=== PATIENT | female | born 1955 | race Caucasian/White ===

== ENCOUNTER 2019-10-26 19:39 | Emergency (ER) | payer OTHER ==
[~2019-10-26] VITALS: Ht 170.2 cm; Wt 63.5 kg
[2019-10-26 19:42] VITALS: BP 150/94
--- NOTE | 2019-10-26 19:54 | NUR ---
PT SENT BY URGENT CARE C/O OF L HAND 3RD DIGIT WHITE DISCOLORATION/BRUSING W/C THE PATIENT NOTICED X 1 HOUR AGO. +SENSATION, -PAIN. PT AAOX4, VSS, NO ACUTE DISTRESS NOTED AT THIS TIME. WILL CONTINUE TO MONITOR. CALL LIGHT WITHIN REACH
--- NOTE | 2019-10-26 20:12 | NUR ---
Patient discharged to home in stable condition. Written and verbal after care instructions given. Patient verbalizes understanding of instruction.ambulatory with a steady gait
== END 2019-10-26 20:13 | disposition home or self-care (01) ==
LOC: ER 19:43
DX: I73.00 Raynaud's syndrome without gangrene (principal); E11.9 Type 2 diabetes mellitus without complications; Z98.890 Other specified postprocedural states; Z60.2 Problems related to living alone

== ENCOUNTER 2022-08-12 13:00 | Emergency (ER) | payer BC, OTHER ==
[~2022-08-12] VITALS: Ht 170.2 cm; Wt 59.0 kg
[2022-08-12 13:44] LABS: BASOPHILS % (AUTO) 0.4 % (0.0-2.0); HEMATOCRIT 42 % (33-45); HEMOGLOBIN 13.9 g/dL (11.5-14.8); LYMPHOCYTES # (AUTO) 1.5 K/uL (0.8-4.8); LYMPHOCYTES % (AUTO) 22.8 % (20.0-44.0); MEAN CORPUSCULAR HGB CONC 33 g/dl (31.0-36.0); MEAN CORPUSCULAR VOLUME 93 fL (82-100); MONOCYTES # (AUTO) 0.8 K/uL (0.1-1.30); MONOCYTES % (AUTO) 11.8 % (2.0-12.0); NEUTROPHILS # (AUTO) 4.4 K/uL (1.8-8.9); PLATELET COUNT (AUTO) 202 K/uL (150-450); RED BLOOD CELL COUNT(AUTO) 4.56 MIL/uL (4.0-5.2); WHITE BLOOD COUNT (AUTO) 6.7 K/uL (4.3-11.0)
--- NOTE | 2022-08-12 14:00 | NUR ---
Eligioljulia, neighbor drove pt to hospital, pt fell on bathroom floor pt stated lost concsiousness before the fall then fell and hit back of head , fell two times
--- NOTE | 2022-08-12 14:01 | NUR ---
CT scan of head performed
[2022-08-12 14:16] LABS: CALCIUM, SERUM 9.3 mg/dL (8.5-10.1); CARBON DIOXIDE 28 mmol/L (21-32); CHLORIDE 100 mmol/L (98-107); CREATININE 1.1 mg/dL (0.6-1.3); GLUCOSE 186 mg/dL (74-106); POTASSIUM 4.3 mmol/L (3.5-5.1); SODIUM SERUM 137 mmol/L (136-145); UREA NITROGEN, BLOOD 16 mg/dL (7-18)
[2022-08-12 14:21] LABS: ALANINE AMINOTRANSFERASE 27 U/L (12-78); ALKALINE PHOSPHATASE 69 U/L (46-116); ASPARTATE AMINOTRANSFERASE 26 U/L (15-37); BILIRUBIN,DIRECT 0.2 mg/dL (0.0-0.2); TOTAL PROTEIN, SERUM 7.5 g/dL (6.4-8.2)
[2022-08-12] MEDS ORDERED: BACI/NEOM/POLY B OINT PKT 1 UDPKT PACKET ONE (14:51)
[2022-08-12] MEDS ORDERED: TDAP [DIPH/PERTUSSIS/TET] 0.5 ML VIAL IM ONE ×2 (14:51→15:00)
[2022-08-12] MEDS ORDERED: LIDOCAINE 0.5%-EPI 1:200,000 50 ML VIAL ONE (14:51)
[2022-08-12] MEDS ORDERED: LIDOCAINE 1% INJ 50 ML MDV IJ ONE (15:00)
[2022-08-12] MEDS ORDERED: BACI/NEOM/POLY B OINT PKT 1 UDPKT PACKET TP ONE (15:00)
[2022-08-12 15:05] LABS: BILIRUBIN,TOTAL 0.6 mg/dL (0.2-1.0)
[2022-08-12] MEDS ORDERED: METF-881 PO (15:07)
[2022-08-12] MEDS ORDERED: ESTR1PAT87 TD (15:07)
[2022-08-12] MEDS ORDERED: PROG100C15 PO (15:07)
[2022-08-12] MEDS ORDERED: BUPR-319 PO (15:07)
[2022-08-12] MEDS ORDERED: ESTR10TA4 VG (15:07)
[2022-08-12 16:33] VITALS: BP 114/64
== END 2022-08-12 16:34 | disposition home or self-care (01) ==
LOC: ER 13:10
DX: R55 Syncope and collapse (principal); S01.01XA Laceration without foreign body of scalp, initial encounter; E11.9 Type 2 diabetes mellitus without complications; Z79.84 Long term (current) use of oral hypoglycemic drugs; W18.30XA Fall on same level, unspecified, initial encounter; Y93.89 Activity, other specified; Y92.89 Other specified places as the place of occurrence of the external cause; Y99.8 Other external cause status
CPT/HCPCS: 99285; 70450; 71045; 12002; 90471; 93005; 90715; 85025; 80048; 80076; 36415; 84484; 85730; J3490; A6403 ×2

== ENCOUNTER 2023-05-20 13:51 | Emergency (ER) | payer BC ==
[~2023-05-20] VITALS: Ht 170.2 cm; Wt 61.2 kg
[~2023-05-20 13:51] MED LIST: BUPR-319 PO; ESTR10TA4 VG; ESTR1PAT87 TD; METF-881 PO; PROG100C15 PO
[2023-05-20 14:54] LABS: BASOPHILS # (AUTO) 0.1 K/uL (0.0-0.2); BASOPHILS % (AUTO) 1.1 % (0.0-2.0); EOSINOPHILS # (AUTO) 0.1 K/uL (0.0-0.7); EOSINOPHILS % (AUTO) 2.5 % (0.0-6.0); HEMATOCRIT 43 % (33-45); HEMOGLOBIN 13.9 g/dL (11.5-14.8); LYMPHOCYTES # (AUTO) 1.9 K/uL (0.8-4.8); LYMPHOCYTES % (AUTO) 35.6 % (20.0-44.0); MEAN CORPUSCULAR HEMOGLOBIN 30 PG (26.0-33.0); MEAN CORPUSCULAR HGB CONC 33 g/dl (31.0-36.0); MEAN CORPUSCULAR VOLUME 93 fL (82-100); MONOCYTES # (AUTO) 0.4 K/uL (0.1-1.30); MONOCYTES % (AUTO) 8.2 % (2.0-12.0); NEUTROPHILS # (AUTO) 2.9 K/uL (1.8-8.9); NEUTROPHILS % (AUTO) 52.6 % (43.0-81.0); PLATELET COUNT (AUTO) 254 K/uL (150-450); RED BLOOD CELL COUNT(AUTO) 4.58 MIL/uL (4.0-5.2); RED CELL DISTRIBUTION WIDTH 13.6 % (11.5-15.0); WHITE BLOOD COUNT (AUTO) 5.4 K/uL (4.3-11.0)
[2023-05-20 15:04] LABS: CALCIUM, SERUM 9.8 mg/dL (8.5-10.1); CARBON DIOXIDE 28 mmol/L (21-32); CHLORIDE 106 mmol/L (98-107); CREATININE 0.7 mg/dL (0.6-1.3); GLUCOSE 87 mg/dL (74-106); POTASSIUM 3.9 mmol/L (3.5-5.1); SODIUM SERUM 143 mmol/L (136-145); UREA NITROGEN, BLOOD 15 mg/dL (7-18)
[2023-05-20] MEDS ORDERED: IOHEXOL-350 100 ML VIAL IV ONE (15:24)
[2023-05-20] MEDS ORDERED: IV NS 0.9% 250 ML IV ONE (15:24)
[2023-05-20 15:29] LABS: MAGNESIUM 2.1 mg/dL (1.8-2.4)
[2023-05-20 15:35] LABS: INR 0.97 (0.91-1.10); PARTIAL THROMBOPLASTIN TIME 24.5 SEC (24.3-34.3); PROTHROMBIN TIME 10.3 SECS (9.2-11.1)
[2023-05-20 15:44] LABS: THYROID STIMULATING HORMONE 1.145 uIU/mL (0.358-3.74)
[2023-05-20] MEDS ORDERED: ESTR10TA VG (16:56)
[2023-05-20] MEDS ORDERED: CHOL100043 PO (16:56)
[2023-05-20] MEDS ORDERED: PROG100C15 PO (16:56)
[2023-05-20] MEDS ORDERED: METF-867 PO (16:56)
[2023-05-20] MEDS ORDERED: MULT-1200 PO (16:56)
[2023-05-20 17:35] VITALS: BP 145/67; TEMP 98.2; O2SAT 100
[2023-05-20 17:37] LABS: APPEARANCE,URINE CLEAR (CLEAR); BILIRUBIN,URINE NEGATIVE (NEGATIVE); BLOOD, URINE NEGATIVE Ery/uL (NEGATIVE); COLOR,URINE YELLOW (YELLOW); KETONES,URINE NEGATIVE (NEGATIVE); LEUKOCYTE ESTERASE ,URINE NEGATIVE (NEGATIVE); NITRITE, URINE NEGATIVE (NEGATIVE); PH,URINE 6.5 (5.0-8.0); PROTEIN,URINE NEGATIVE (NEGATIVE); UGLUCOSE NEGATIVE (NEGATIVE); UROBILINOGEN,URINE 0.2 EU/dL (0.2)
== END 2023-05-20 17:42 | disposition left against medical advice (07) ==
LOC: ER 13:51
DX: I63.9 Cerebral infarction, unspecified (principal); R53.1 Weakness; E11.9 Type 2 diabetes mellitus without complications; Z79.84 Long term (current) use of oral hypoglycemic drugs; Z79.899 Other long term (current) drug therapy
CPT/HCPCS: 99285; 70498; 93005; 70496; 85025; 80048; 83735; 81003; 36415; 84439; 84443; 84484; 85730; 82962; J7050; Q9967